=== PATIENT | female | born 1970 | race African-American/Black ===

== ENCOUNTER 2018-01-21 14:10 | Emergency (ER) | payer OTHER ==
[~2018-01-21] VITALS: Ht 170.2 cm; Wt 86.6 kg
[~2018-01-21 14:10] MED LIST: PRED20TA PO
[2018-01-21] MEDS ORDERED: IV NORMAL SALINE 1,000ML 1,000 ML IV SCH (14:44)
[2018-01-21 14:52] LABS: BASO % 1 % (0-3); EOS # 0.1 x10^3/uL (0.0-0.7); EOS % 2 % (0-3); HEMATOCRIT 39.1 % (36.0-47.0); HEMOGLOBIN 12.9 g/dL (12.0-15.5); LYMPH # 1.9 x10^3/uL (1.0-4.8); LYMPH % 29 % (24-48); MEAN CORPUSCULAR HEMOGLOBIN 30 pg (25-35); MEAN CORPUSCULAR HGB CONC 33 g/dL (31-37); MEAN CORPUSCULAR VOLUME 93 fL (79-100); MONO # 0.7 x10^3/uL (0.0-1.1); MONO % 11 % (0-9); NEUT # 3.8 x10^3uL (1.8-7.7); NEUT % 58 % (31-73); PLATELET COUNT 366 x10^3/uL (140-400); RED BLOOD COUNT 4.23 x10^6/uL (3.50-5.40); RED CELL DISTRIBUTION WIDTH 13.3 % (11.5-14.5); WHITE BLOOD COUNT 6.5 x10^3/uL (4.0-11.0)
[2018-01-21 15:09] LABS: ALBUMIN 3.9 g/dL (3.4-5.0); CALCIUM 8.7 mg/dL (8.5-10.1); CREATININE 0.8 mg/dL (0.6-1.0); GFR 93.4; POTASSIUM 3.8 mmol/L (3.5-5.1); TOTAL BILIRUBIN 0.4 mg/dL (0.2-1.0); TOTAL PROTEIN 7.8 g/dL (6.4-8.2)
[2018-01-21] MEDS ORDERED: METH4TAB2 PO (15:41)
[2018-01-21] MEDS ORDERED: DICL50TA4 PO (15:41)
[2018-01-21] MEDS ORDERED: TRAM50TA PO (15:41)
--- NOTE | 2018-01-21 15:42 | RAD ---
Chest Radiograph One View 01/21/2018 Clinical Indication: chest pain Comparison: 04/03/2009 Findings: Cardiac and mediastinal silhouettes are within normal limits. No pleural effusion, pneumothorax, or focal consolidation. IMPRESSION: No acute cardiopulmonary abnormality. Electronically signed by: Shahid Jules MD (01/21/2018 3:39 PM) [facility]
[2018-01-21] MEDS ORDERED: ORPH-16 PO (15:54)
--- NOTE | 2018-01-21 15:55 | PHYS DOC ---
Past History Past Medical History: Arrhythmia, Asthma, GERD, Hypertension, Hypothyroid, Other Past Surgical History: , Tonsillectomy Alcohol Use: None Drug Use: None Adult General Chief Complaint Chief Complaint: CHEST PAIN HPI HPI Patient is a 47-year-old female who presents with complaint of chest and back pain that has been going on for the last few days. Patient was seen by her primary care doctor yesterday and an EKG was done. Her primary doctor thought that it was probably just reflux and had prescribed some Prilosec for her. Patient describes the pain as being sharp and stabbing in nature and states that pain is worsened with deep breathing in both her chest and her back. Patient does admit to a cough over the last several days but states the cough is been dry. She denies any lower extremity pain or swelling. Patient denies any fever. She also indicates that pain is worsened with palpation over her anterior chest. Review of Systems Review of Systems Constitutional: Denies fever or chills [] Respiratory: Admits to dry cough without shortness of breath [] Cardiovascular: Complains of anterior chest wall pain[] GI: Denies abdominal pain, nausea, vomiting or diarrhea [] Musculoskeletal: Complains of midthoracic back pain [] Integument: Denies rash or skin lesions [] All other systems were reviewed and found to be within normal limits, except as documented in this note. Current Medications Current Medications Current Medications Medications (Trade) Dose Ordered Sig/Bobby Start Time Stop Time Status Last Admin Dose Admin Sodium Chloride 1,000 ml @ 1,000 mls/hr Q1H 01/21/18 14:44 01/21/18 15:43 01/21/18 14:56 1,000 MLS/HR Allergies Allergies Allergies Coded Allergies Type Severity Reaction Last Updated Verified Penicillins Allergy Unknown 12/30/15 Yes lisinopril Allergy Unknown 12/30/15 Yes Physical Exam Physical Exam Constitutional: Well developed, well nourished, no acute distress, non-toxic appearance. [] HENT: Normocephalic, atraumatic, bilateral external ears normal, oropharynx moist, no oral exudates, nose normal. [] Eyes: PERRLA, EOMI, conjunctiva normal, no discharge. [] Neck: Normal range of motion, no tenderness, supple, no stridor. [] Cardiovascular: Regular rate and rhythm. There is reproducible chest wall tenderness along the left mid to lower sternal margin.[] Lungs & Thorax: Bilateral breath sounds clear to auscultation [] Abdomen: Bowel sounds normal, soft, no tenderness. [] Skin: Warm, dry, no erythema, no rash. [] Back: There is tenderness to palpation with tissue texture change overlying T7 on the right with mild spasm in the paraspinal musculature at this level. [] Extremities: No tenderness, no cyanosis, no clubbing, ROM intact, no edema. [] Neurologic: Alert and oriented X 3, normal motor function, normal sensory function, no focal deficits noted. [] Current Patient Data Vital Signs Vital Signs Date Time Temp Pulse Resp B/P (MAP) Pulse Ox O2 Delivery O2 Flow Rate FiO2 01/21/18 14:10 98.3 95 18 97 Room Air Lab Results Laboratory Tests Test 01/21/18 14:28 White Blood Count 6.5 x10^3/uL (4.0-11.0) Red Blood Count 4.23 x10^6/uL (3.50-5.40) Hemoglobin 12.9 g/dL (12.0-15.5) Hematocrit 39.1 % (36.0-47.0) Mean Corpuscular Volume 93 fL (79-100) Mean Corpuscular Hemoglobin 30 pg (25-35) Mean Corpuscular Hemoglobin Concent 33 g/dL (31-37) Red Cell Distribution Width 13.3 % (11.5-14.5) Platelet Count 366 x10^3/uL (140-400) Neutrophils (%) (Auto) 58 % (31-73) Lymphocytes (%) (Auto) 29 % (24-48) Monocytes (%) (Auto) 11 % (0-9) H Eosinophils (%) (Auto) 2 % (0-3) Basophils (%) (Auto) 1 % (0-3) Neutrophils # (Auto) 3.8 x10^3uL (1.8-7.7) Lymphocytes # (Auto) 1.9 x10^3/uL (1.0-4.8) Monocytes # (Auto) 0.7 x10^3/uL (0.0-1.1) Eosinophils # (Auto) 0.1 x10^3/uL (0.0-0.7) Basophils # (Auto) 0.0 x10^3/uL (0.0-0.2) D-Dimer (Alice) < 0.19 mg/L (0.00-0.50) Sodium Level 139 mmol/L (136-145) Potassium Level 3.8 mmol/L (3.5-5.1) Chloride Level 102 mmol/L (98-107) Carbon Dioxide Level 26 mmol/L (21-32) Anion Gap 11 (6-14) Blood Urea Nitrogen 15 mg/dL (7-20) Creatinine 0.8 mg/dL (0.6-1.0) Estimated GFR (Cockcroft-Gault) 93.4 BUN/Creatinine Ratio 19 (6-20) Glucose Level 56 mg/dL (70-99) L Calcium Level 8.7 mg/dL (8.5-10.1) Magnesium Level 2.0 mg/dL (1.8-2.4) Total Bilirubin 0.4 mg/dL (0.2-1.0) Aspartate Amino Transferase (AST) 16 U/L (15-37) Alanine Aminotransferase (ALT) 23 U/L (14-59) Alkaline Phosphatase 96 U/L (46-116) Troponin I Quantitative < 0.017 ng/mL (0-0.055) CM-Qli-I-Type Natriuretic Peptide 6 pg/mL (0-124) Total Protein 7.8 g/dL (6.4-8.2) Albumin 3.9 g/dL (3.4-5.0) Albumin/Globulin Ratio 1.0 (1.0-1.7) EKG EKG EKG demonstrates normal sinus rhythm with no ST segment abnormalities.[] Radiology/Procedures Radiology/Procedures [] Impressions: Chest x-ray demonstrates no acute process. Course & Med Decision Making Course & Med Decision Making Pertinent Labs and Imaging studies reviewed. (See chart for details) [] Dragon Disclaimer Dragon Disclaimer This electronic medical record was generated, in whole or in part, using a voice recognition dictation system. Departure Departure: Impression: Primary Impression: Costochondritis Disposition: 01 HOME, SELF-CARE Condition: STABLE Referrals: MIGUELANGEL WHELAN DO, MPH (PCP) Patient Instructions: Costochondritis Scripts Orphenadrine Citrate (ORPHENADRINE CITRATE) 100 Mg Tablet.er 1 TAB PO BID PRN for MUSCLE SPASMS, #20 TAB Prov: DELORIS PIERSON Jr. DO 01/21/18 Methylprednisolone (MEDROL) 4 Mg Tab.ds.pk 1 PKG PO UD for inflammation, #1 PKG Prov: DELORIS PIERSON Jr. DO 01/21/18 Diclofenac Sodium (DICLOFENAC SODIUM) 50 Mg Tablet.dr 1 TAB PO BID PRN for PAIN, #20 TAB Prov: DELORIS PIERSON Jr. DO 01/21/18 Tramadol Hcl (TRAMADOL HCL) 50 Mg Tablet 50 MG PO PRN Q6HRS PRN for PAIN, #14 TAB Prov: DELORIS PIERSON Jr. DO 01/21/18 DELORIS PIERSON Jr. DO Jan 21, 2018 15:55
[2018-01-21 15:59] VITALS: BP 142/92
--- NOTE | 2018-01-21 17:45 | EKG ---
[address] [address] Test Date: 2018-01-21 Test Time: 14:21:24 Pat Name: MARY DUGGAN Department: Room: Gender: F High Lift Operator: : 1970 Requested By: DELORIS PIERSON Order Number: [id number] Reading MD: Jesús Bonilla Measurements Intervals [place] Rate: 89 P: 56 [place]: 120 QRS: 51 QRSD: 82 T: 14 QT: 364 QTc: 444 Interpretive Statements SINUS RHYTHM Electronically Signed On 01-25-2018 10:53:45 [employer] by Jesús Bonilla
== END 2018-01-21 16:02 | disposition home or self-care (01) ==
LOC: ER 14:10
DX: M94.0 Chondrocostal junction syndrome [Tietze] (principal); M54.6 Pain in thoracic spine; J45.909 Unspecified asthma, uncomplicated; K21.9 Gastro-esophageal reflux disease without esophagitis; I10 Essential (primary) hypertension; E03.9 Hypothyroidism, unspecified; Z98.890 Other specified postprocedural states; Z88.0 Allergy status to penicillin; Z88.8 Allergy status to other drugs, medicaments and biological substances
CPT/HCPCS: 36415; 71045; 80053; 83735; 83880; 84484; 85025; 85379; 93005; 99284; J7030

== ENCOUNTER → 2019-03-22 | Day surgery (SDC) | payer OTHER ==
[~2019-03-22] MED LIST changes: +ACETAMINOPHEN 325 MG TABLET PO PRN; +ALBUTEROL SULFATE 2.5 MG/3 ML NEBU. NEB PRN; +ATROPINE 0.5 MG/5 ML DISP.SYRIN. IV PRN; +DICL50TA4 PO; +IV RINGERS SOLUTION,LACTATED 1,000 ML IV SCH; +METH4TAB2 PO; +ONDANSETRON PF 4 MG/2 ML VIAL. IV PRN; +ORPH-16 PO; +PHENOL ORAL SPRAY 177ML BOTTLE. MM PRN; +PROPOFOL 20 ML IV ONE; +TRAM50TA PO; +diphenhydrAMINE 50 MG/ML VIAL IV PRN
[2019-03-22 10:12] LABS: U PREG PATIENT NEGATIVE (NEG)
[2019-03-22 11:11] VITALS: BP 124/78
--- NOTE | 2019-03-24 16:06 | PATHOLOGY ---
[facility] Accession Number: [id number] . 01 Material submitted: . PART A: stomach - GASTRIC BXS PART B: esophagus - ESOPHAGUS BX . 01 Clinical history: . History of reflux; dysphagia . 02 Diagnosis: A. Gastric biopsies: - Congestion and focal slight chronic inflammation. . B. Esophageal biopsy: - Reflux esophagitis. . (JPM:mml; 03/24/2019) [facility] 03/24/2019 0931 Local . 02 Comment: Sections of the gastric biopsy reveal segments of gastric antral and gastric body mucosa showing congestion and focal slight chronic inflammation. A properly-controlled immunoperoxidase stain for Helicobacter is negative for Helicobacter organisms. . Sections of the esophageal biopsy reveal a partially tangentially-oriented segment of hyperplastic squamous esophageal mucosa with mild chronic inflammation. The findings are consistent with reflux esophagitis. There is no evidence of Powers's change, dysplasia, or malignancy. . Special stain (A1): Immunoperoxidase stain for Helicobacter . (JPM:mml; 03/24/2019) . 02 Electronically signed: . Clifford Posadas MD, Pathologist NPI- [id number] . 01 Gross description: . A. The specimen is received in formalin, labeled "Nena Óscar, gastric biopsy, gastritis". Received are two segments of pale paz soft tissue ranging in size from 0.2 to 0.3 cm in maximum dimensions. The specimen is submitted entirely in cassette A1. . B. The specimen is received in formalin, labeled "Nena Óscar, esophagus biopsy, history of reflux". Received is a segment of pale paz soft tissue measuring 0.3 cm in maximum dimensions. The specimen is submitted entirely in cassette B1. (CAA; 03/23/2019) QAC/QAC 03/23/2019 1146 Local . 02 Microscopic: . . . . 02 Pathologist provided ICD-10: K31.89, K29.50, K21.0 . 02 CPT . 287897, 558653, E15860 Specimen Comment: A courtesy copy of this report has been sent to [phone], [phone] Specimen Comment: [id number] Specimen Comment: Report sent to / DR WHELAN Performed at: 01 [facility] [address] [facility] [address], [place] [id number] MD Paul King MD Phone: [phone] Performed at: 02 [facility] [address] [place], [place] [id number] MD Clifford Posadas MD Phone: [phone]
== END | disposition home or self-care (01) ==
LOC: SURG 09:36
PROVIDERS: ATTEND Emergency Medicine
DX: R13.10 Dysphagia, unspecified (principal); K29.50 Unspecified chronic gastritis without bleeding; K22.2 Esophageal obstruction; K21.0 Gastro-esophageal reflux disease with esophagitis; J45.909 Unspecified asthma, uncomplicated; M19.90 Unspecified osteoarthritis, unspecified site; E66.9 Obesity, unspecified; Z88.0 Allergy status to penicillin; Z88.8 Allergy status to other drugs, medicaments and biological substances; Z79.899 Other long term (current) drug therapy; Z98.890 Other specified postprocedural states; Z68.29 Body mass index [BMI] 29.0-29.9, adult
CPT/HCPCS: 43239; 43450; 81025; 88305; 88342; J2704; J7120

== ENCOUNTER 2019-04-16 16:13 | Emergency (ER) | payer OTHER ==
[~2019-04-16] VITALS: Ht 170.2 cm; Wt 86.3 kg
[2019-04-16 16:13] VITALS: BP 151/95
[~2019-04-16 16:13] MED LIST changes: -ACETAMINOPHEN 325 MG TABLET PO PRN; -ALBUTEROL SULFATE 2.5 MG/3 ML NEBU. NEB PRN; -ATROPINE 0.5 MG/5 ML DISP.SYRIN. IV PRN; -IV RINGERS SOLUTION,LACTATED 1,000 ML IV SCH; -ONDANSETRON PF 4 MG/2 ML VIAL. IV PRN; -PHENOL ORAL SPRAY 177ML BOTTLE. MM PRN; -PROPOFOL 20 ML IV ONE; -diphenhydrAMINE 50 MG/ML VIAL IV PRN
--- NOTE | 2019-04-16 16:44 | RAD ---
Exam: Right shoulder 3 views INDICATION: Pain TECHNIQUE: Frontal view of the right shoulder with internal and external rotation and transscapular Y view. Comparisons: None FINDINGS: Bone mineralization is normal. No acute or healed fractures. Soft tissues are unremarkable. Joint spaces are well-maintained. IMPRESSION: No acute osseous abnormality. Electronically signed by: Apurva Naik MD (04/16/2019 4:42 PM) [id number]
[2019-04-16] MEDS ORDERED: PRED50TA PO (17:02)
--- NOTE | 2019-04-16 17:04 | PHYS DOC ---
Past History Past Medical History: Arrhythmia, Asthma, GERD, Hypertension, Hypothyroid, Other Past Surgical History: , Tonsillectomy Alcohol Use: None Drug Use: None Adult General Chief Complaint Chief Complaint: BACK PAIN OR INJURY [facility] HPI 49-year-old female presents with right sided shoulder blade pain. The pain started about a week ago. The patient had no injury, fall, or inciting event that she can think of. For the last week, she has had a burning pain feeling at about T4 between her spine in her shoulder blade. He denies pain in the shoulder itself. He has no range of motion limitations. She has not noticed any arm or hand weakness. She has not had pain like this before. 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 She saw a couple of her doctors this week for her shoulder blade pain and the medicines that they have tried have not been helping. She is not sure what else to try. Review of Systems Review of Systems Constitutional: Denies fever or chills [] Eyes: Denies change in visual acuity, redness, or eye pain [] HENT: Denies nasal congestion or sore throat [] Respiratory: Denies cough or shortness of breath [] Cardiovascular: No additional information not addressed in HPI [] GI: Denies abdominal pain, nausea, vomiting, bloody stools or diarrhea [] : Denies dysuria or hematuria [] Musculoskeletal: Right shoulder blade pain[] Integument: Denies rash or skin lesions [] Neurologic: Denies headache, focal weakness or sensory changes [] Endocrine: Denies polyuria or polydipsia [] All other systems were reviewed and found to be within normal limits, except as documented in this note. Allergies Allergies Allergies Coded Allergies Type Severity Reaction Last Updated Verified Penicillins Allergy Unknown 03/22/19 Yes lisinopril Allergy Unknown 03/22/19 Yes Physical Exam Physical Exam Constitutional: Well developed, well nourished, no acute distress, non-toxic appearance. [] HENT: Normocephalic, atraumatic, bilateral external ears normal, oropharynx moist, no oral exudates, nose normal. [] Eyes: PERRLA, EOMI, conjunctiva normal, no discharge. [] Neck: Normal range of motion, no tenderness, supple, no stridor. [] Cardiovascular:Heart rate regular rhythm, no murmur [] Lungs & Thorax: Bilateral breath sounds clear to auscultation [] Abdomen: Bowel sounds normal, soft, no tenderness, no masses, no pulsatile masses. [] Skin: Warm, dry, no erythema, no rash. [] Back: Mild tenderness on the right side at T4 in the soft tissue, no rash, no muscle spasm[] Extremities: No tenderness, no cyanosis, no clubbing, ROM intact, no edema. [] Neurologic: Alert and oriented X 3, normal motor function, normal sensory function, no focal deficits noted. [] Psychologic: Affect normal, judgement normal, mood normal. [] EKG EKG [] Radiology/Procedures Radiology/Procedures [] Impressions: Exam: Right shoulder 3 views INDICATION: Pain TECHNIQUE: Frontal view of the right shoulder with internal and external rotation and transscapular Y view. Comparisons: None FINDINGS: Bone mineralization is normal. No acute or healed fractures. Soft tissues are unremarkable. Joint spaces are well-maintained. IMPRESSION: No acute osseous abnormality. Electronically signed by: Santana Daigle MD (04/16/2019 4:42 PM) [id number] DICTATED AND SIGNED BY: SANTANA DAIGLE MD DATE: 04/16/191641 CC: SUSANA GALVAN DO; MIGUELANGEL WHELAN DO, MPH ~ Course & Med Decision Making Course & Med Decision Making Pertinent Labs and Imaging studies reviewed. (See chart for details) Patient's shoulder x-ray is unremarkable. Her description makes me wonder about a cervical disc issue. I will do plain films of her cervical spine. I believe she has been given adequate pain medication is from her other physicians. The only thing I have to add is to try prednisone to see if that improves the pain. This would give further evidence that might be a nerve issue. She will follow up with her already established physicians. She is stable for discharge at this time. [] Dragon Disclaimer Dragon Disclaimer This electronic medical record was generated, in whole or in part, using a voice recognition dictation system. Departure Departure: Impression: Primary Impression: Pain of right scapula Disposition: 01 HOME, SELF-CARE Condition: STABLE Referrals: MIGUELANGEL WHELAN DO, MPH (PCP) Patient Instructions: Cervical Radiculopathy, [id number], Cervical Strain and Sprain with Rehab-Sports[facility] Scripts Prednisone (PREDNISONE) 50 Mg Tablet 1 TAB PO DAILY for scapula pain, #5 TAB Prov: SUSANA GALVAN DO 04/16/19 SUSANA GALVAN DO Apr 16, 2019 17:04
--- NOTE | 2019-04-16 17:38 | RAD ---
Exam: Cervical spine 3 views INDICATION: Concern for degenerative disc disease TECHNIQUE: Frontal and lateral views of the cervical spine with odontoid view and swimmer's view. Comparisons: None FINDINGS: Vertebral body heights and alignment are well-maintained. Degenerative disc disease is noted throughout the cervical spine greatest at C4-C5, C5-C6 and C6-C7. Mild bilateral facet arthropathy is also noted. Visualized paraspinal soft tissues are unremarkable. IMPRESSION: Multilevel spondylotic changes described above. Electronically signed by: Apurva Naik MD (04/16/2019 5:35 PM) [id number]
== END 2019-04-16 17:12 | disposition home or self-care (01) ==
LOC: ER 16:13
DX: M25.511 Pain in right shoulder (principal); J45.909 Unspecified asthma, uncomplicated; K21.9 Gastro-esophageal reflux disease without esophagitis; I10 Essential (primary) hypertension; E03.9 Hypothyroidism, unspecified; Z90.89 Acquired absence of other organs; Z88.0 Allergy status to penicillin; Z88.8 Allergy status to other drugs, medicaments and biological substances
CPT/HCPCS: 72040; 73030; 99284

== ENCOUNTER → 2020-05-27 | Outpatient (CLI) | payer OTHER ==
[~2020-05-27] MED LIST changes: +PRED50TA PO
--- NOTE | 2020-05-27 10:01 | RAD ---
EXAMINATION: XR CLAVICLE CLINICAL HISTORY: Bilateral clavicle pain TECHNIQUE: XR CLAVICLE Number of Images/Views: 4 COMPARISON: Right shoulder radiographs 04/16/2019 FINDINGS: Acromioclavicular joint space alignment maintained. No acute fracture. No focal soft tissue swelling. IMPRESSION: No acute osseous abnormality. Electronically signed by: Fredrick Murillo DO (05/27/2020 9:59 AM) NELLA
== END ==
LOC: PMG 09:40
PROVIDERS: ATTEND Nurse Practitioner Family
DX: M89.8X1 Other specified disorders of bone, shoulder (principal)
CPT/HCPCS: 73000